=== PATIENT | female | born 1985 | race Caucasian/White ===

== ENCOUNTER 2018-08-11 20:49 | Inpatient (IN) | payer MEDICAID ==
[2018-08-11] MEDS ORDERED: LACTATED RINGER'S 1,000 ML IV (22:17)
[2018-08-11] MEDS ORDERED: BUTORPHANOL 2 MG INJ IV (22:30)
[2018-08-11] MEDS ORDERED: LIDOCAINE 1% (MPF) 30 ML INJ INJ (22:30)
[2018-08-11] MEDS ORDERED: MISOPROSTOL 200 MCG TAB PR (22:30)
[2018-08-11] MEDS ORDERED: BUTORPHANOL 1 MG INJ IV (22:30)
[2018-08-11] MEDS ORDERED: CARBOPROST 250 MCG INJ IM (22:30)
[2018-08-11] MEDS ORDERED: OXYTOCIN 30 UNITS/LR 500 ML IV (22:30)
[2018-08-11] MEDS ORDERED: METHYLERGONOVINE 0.2 MG INJ IM (22:30)
[2018-08-11] MEDS: LACTATED RINGER'S 1,000 ML IV (22:47)
[2018-08-11 23:05] LABS: ADD MAN DIFF? NO
[2018-08-11 23:08] LABS: WHITE BLOOD COUNT 12.9 10^3/ul (4.8-10.8)
[2018-08-11 23:08] LABS: BASOPHIL # 0.1 10^3/ul (0.0-0.1); BASOPHILS % 0.5 % (0.0-2.0); EOSINOPHILS # 0.3 10^3/ul (0.0-0.5); EOSINOPHILS % 2.4 % (0.0-7.0); HEMATOCRIT 38.2 % (37.0-47.0); HEMOGLOBIN 12.2 g/dl (12.0-16.0); LYMPHOCYTES # 2.2 10^3/ul (0.8-2.9); LYMPHOCYTES % 17.2 % (15.0-51.0); MEAN CORPUSCULAR HEMOGLOBIN 27.9 pg (29.0-33.0); MEAN CORPUSCULAR HGB CONC 31.9 g/dl (32.0-37.0); MEAN CORPUSCULAR VOLUME 87.4 fl (82.0-101.0); MEAN PLATELET VOLUME 11.9 fl (7.4-10.4); MONOCYTE # 0.8 10^3/ul (0.3-0.9); MONOCYTES % 5.9 % (0.0-11.0); NEUTROPHIL # 9.4 10^3/ul (1.6-7.5); NEUTROPHILS % 72.8 % (39.0-77.0); PLATELET COUNT 187 10^3/UL (140-415); RED BLOOD COUNT 4.37 10^6/ul (4.20-5.40); RED CELL DISTRIBUTION WIDTH 13.8 % (11.5-14.5)
[2018-08-11 23:27] LABS: INR 0.85; PARTIAL THROMBOPLASTIN TIME 21.3 Sec (23.0-35.0); PROTIME 11.7 Sec (11.9-14.9); PT RATIO 0.9
[2018-08-12] MEDS: MISOPROSTOL 50 MCG CAPSULE PO (00:11)
[2018-08-12] MEDS: LACTATED RINGER'S 1,000 ML IV (04:55)
[2018-08-12] MEDS ORDERED: OXYTOCIN 30 UNITS/LR 500 ML IV ×2 (06:00→10:00)
[2018-08-12] MEDS: DEXTROSE 5%-LR 1,000 ML IV ×3 (06:10→17:37)
[2018-08-12] MEDS: OXYTOCIN 30 UNITS/LR 500 ML IV ×2 (07:27→07:52)
[2018-08-12] MEDS: MINERAL OIL LIGHT 10 ML VIAL TOP (07:28)
[2018-08-12] MEDS: IBUPROFEN 600 MG TAB PO ×4 (07:50→23:21)
[2018-08-12] MEDS ORDERED: ACETAMINOPHEN 325 MG TAB PO (10:00)
[2018-08-12] MEDS ORDERED: MISOPROSTOL 200 MCG TAB PR (10:00)
[2018-08-12] MEDS ORDERED: ONDANSETRON 4 MG INJ IV (10:00)
[2018-08-12] MEDS ORDERED: METHYLERGONOVINE 0.2 MG INJ IM (10:00)
[2018-08-12] MEDS ORDERED: ZOLPIDEM 5 MG TAB PO (10:00)
[2018-08-12] MEDS ORDERED: DIPHENHYDRAMINE 50 MG INJ IV (10:00)
[2018-08-12] MEDS ORDERED: CARBOPROST 250 MCG INJ IM (10:00)
[2018-08-12] MEDS: LACTATED RINGER'S 1,000 ML IV* ×2 (12:02→17:37)
[2018-08-12] MEDS: WITCH HAZEL/GLYCERIN PAD PR (12:20)
[2018-08-12] MEDS: OXYCODONE/ASPIRIN (4.88/325) TAB PO (12:20)
[2018-08-12] MEDS: BENZOCAINE 20% 56 ML SPRAY TOP (12:20)
[2018-08-12] MEDS: LANOLIN HPA 1 PKT TOP (12:21)
[2018-08-12 15:24] LABS: RAPID PLASMA REAGIN NONREACTIVE (NR)
[2018-08-13 05:11] LABS: ADD MAN DIFF? NO
[2018-08-13 05:17] LABS: BASOPHIL # 0.1 10^3/ul (0.0-0.1); BASOPHILS % 0.5 % (0.0-2.0); EOSINOPHILS # 0.4 10^3/ul (0.0-0.5); EOSINOPHILS % 3.6 % (0.0-7.0); HEMATOCRIT 35.7 % (37.0-47.0); HEMOGLOBIN 11.6 g/dl (12.0-16.0); LYMPHOCYTES # 2.2 10^3/ul (0.8-2.9); LYMPHOCYTES % 18.9 % (15.0-51.0); MEAN CORPUSCULAR HEMOGLOBIN 28.3 pg (29.0-33.0); MEAN CORPUSCULAR HGB CONC 32.5 g/dl (32.0-37.0); MEAN CORPUSCULAR VOLUME 87.1 fl (82.0-101.0); MEAN PLATELET VOLUME 11.3 fl (7.4-10.4); MONOCYTE # 0.8 10^3/ul (0.3-0.9); MONOCYTES % 6.8 % (0.0-11.0); NEUTROPHIL # 8.2 10^3/ul (1.6-7.5); NEUTROPHILS % 69.4 % (39.0-77.0); PLATELET COUNT 194 10^3/UL (140-415); RED CELL DISTRIBUTION WIDTH 14.2 % (11.5-14.5)
[2018-08-13 05:17] LABS: WHITE BLOOD COUNT 11.9 10^3/ul (4.8-10.8)
[2018-08-13] MEDS: IBUPROFEN 600 MG TAB PO ×4 (06:06→23:12)
[2018-08-13] MEDS: SENNA/DOCUSATE NA (8.6MG/50MG) TAB PO (20:42)
[2018-08-13] MEDS: OXYCODONE/ASPIRIN (4.88/325) TAB PO (20:42)
[2018-08-14] MEDS: IBUPROFEN 600 MG TAB PO ×2 (05:42→12:26)
[2018-08-14] MEDS: MEASLES,MUMPS,RUBELLA VACCINE INJ SC* (09:00)
[2018-08-14] MEDS: DIPHTH/TET/ACEL PERTUSS (ADULT) 0.5 ML VIAL IM* (09:00)
== END 2018-08-14 18:44 | disposition home or self-care (01) | DRG 807 ==
LOC: L-D 08-12 06:44 → MS1 08-13 21:00 → L-D 08-12 08:55 → MS1 08-12 10:43
PROVIDERS: Obstetrics & Gynecology
PROC: 10D07Z6 Extraction of Products of Conception, Vacuum, Via Natural or Artificial Opening (ICD-10-PCS; principal; 2018-08-12)
PROC: 0HQ9XZZ Repair Perineum Skin, External Approach (ICD-10-PCS; 2018-08-12)
DX: O76 Abnormality in fetal heart rate and rhythm complicating labor and delivery (principal); Z37.0 Single live birth; O70.0 First degree perineal laceration during delivery; O69.1XX0 Labor and delivery complicated by cord around neck, with compression, not applicable or unspecified; Z3A.40 40 weeks gestation of pregnancy
CPT/HCPCS: 76815; 85025; 85610; 85730; 86592; 86850; 86900; 86901; 93970; 99464